=== PATIENT | female | born 1995 | race Caucasian/White ===

== ENCOUNTER → 2018-09-18 | Outpatient (CLI) | payer BC ==
[2018-09-18 15:42] LABS: FREE T4 1.28 NG/DL (0.76-1.46)
== END ==
LOC: M SMT 10:14
DX: R63.5 Abnormal weight gain (principal)
CPT/HCPCS: 84443

== ENCOUNTER → 2018-11-13 | Outpatient (REF) | payer BC ==
[~2018-11-13] MED LIST: ACET50TA PO; IBUP80TA PO
== END ==
LOC: M LAB REF 13:25
PROVIDERS: ATTEND Obstetrics & Gynecology
DX: R87.613 High grade squamous intraepithelial lesion on cytologic smear of cervix (HGSIL) (principal)

== ENCOUNTER → 2018-12-01 | Outpatient (REF) | payer BC | LOC: M LAB REF 19:48 | PROVIDERS: ATTEND Obstetrics & Gynecology | DX: D06.1 Carcinoma in situ of exocervix (principal) ==

== ENCOUNTER → 2019-03-31 | Outpatient (CLI) | payer BC ==
[~2019-03-31] MED LIST changes: -ACET50TA PO; +MAPA500T17 PO
[2019-03-31 13:20] LABS: BASO # 0.1 10^3/uL (0.0-0.2); BASO % 0.5 % (0.0-1.0); EOS % 0.3 % (0.0-3.0); HEMATOCRIT 40.7 % (36.0-47.0); HEMOGLOBIN 13.4 g/dl (12.0-15.5); LYMPH # 1.7 10^3/uL (1.5-6.5); LYMPH % 12.5 % (24.0-44.0); MEAN CORPUSCULAR HEMOGLOBIN 29.5 pg (27.0-33.0); MEAN CORPUSCULAR HGB CONC 32.9 g/dl (32.0-36.5); MEAN CORPUSCULAR VOLUME 89.6 fl (80.0-96.0); MONO # 0.6 10^3/uL (0.0-0.8); MONO % 4.4 % (0.0-5.0); NEUTROPHILS % 81.9 % (36.0-66.0); PLATELET COUNT, AUTOMATED 339 10^3/uL (150-450); RED BLOOD COUNT 4.54 10^6/uL (4.00-5.40); WHITE BLOOD COUNT 13.4 10^3/uL (4.0-10.0)
[2019-03-31 14:13] LABS: HEPATITIS C VIRUS ABY INDEX 0.1 INDEX (<0.8); HIV 1&2 SCREEN CENTAUR NEGATIVE (NEGATIVE); RUBELLA IgG QUALITATIVE IMMUNE (IMMUNE)
[2019-03-31 15:00] LABS: CHLAMYDIA DNA AMPLIFICATION NEGATIVE (NEGATIVE); GC DNA AMPLIFICATION NEGATIVE (NEGATIVE)
== END ==
LOC: M SMT 09:45
PROVIDERS: ATTEND Advanced Practice Midwife
DX: Z34.81 Encounter for supervision of other normal pregnancy, first trimester (principal); Z3A.00 Weeks of gestation of pregnancy not specified

== ENCOUNTER → 2019-05-31 | Outpatient (CLI) | payer BC ==
--- NOTE | 2019-05-31 22:37 | REP ---
Clinical: Anatomical evaluation. Comparison: None . Findings: Examination demonstrates a single live intrauterine in variable presentation. motion is identified by technologist. Placenta is noted posterior and grade zero without evidence for placenta previa or abruption. Amniotic fluid volume is normal. Cervix measures 3.7 cm in length and appears closed. No evidence for nuchal cord. Gestational age by LMP 18 weeks 3 days with LEW 10/29/2019 . Gestational age by current measurements 18 weeks 2 days with LEW 10/30/2019 . FHR equals 163 beats per minute. BPD 3.9 cm 17 weeks 6 days HC 14.97 18 weeks 0 days AC 12.1 cm 17 weeks 5 days FL 3.0 cm 19 weeks 3 days HL 2.7 cm 18 weeks 3 days HC/AC ratio 1.23 Estimated weight 240 grams ( 48th percentile). Anatomical assessment demonstrates normal structures including cranium, choroid plexus, cavum, cerebellum/posterior fossa, facial features, lungs, diaphragm, stomach, cord insertion/three-vessel cord, kidneys/bladder, and extremities. Limited evaluation of the four-chamber heart/ventricular outflow tracts and spine. Impression: Single live intrauterine in variable presentation demonstrating appropriate interval growth. Anatomical limitations as noted above may warrant reevaluation and follow-up. Electronically Signed by Bryan Martell MD 05/31/2019 10:28 P
== END ==
LOC: M RAD 09:57
PROVIDERS: ATTEND Advanced Practice Midwife
DX: Z34.82 Encounter for supervision of other normal pregnancy, second trimester (principal); Z3A.18 18 weeks gestation of pregnancy

== ENCOUNTER → 2019-05-31 | Outpatient (CLI) | payer BC | LOC: M SMT 11:41 | PROVIDERS: ATTEND Advanced Practice Midwife | DX: O28.5 Abnormal chromosomal and genetic finding on antenatal screening of mother (principal); Z3A.00 Weeks of gestation of pregnancy not specified ==

== ENCOUNTER → 2019-07-19 | Outpatient (CLI) | payer BC ==
--- NOTE | 2019-07-20 04:20 | REP ---
Clinical: Anatomical evaluation. Comparison: 05/31/2019 . Findings: Examination demonstrates a single live intrauterine in transverse (head to maternal right) presentation. motion is identified by technologist. Placenta is noted posterior and grade there are zero without evidence for placenta previa or abruption. Amniotic fluid volume is normal. Cervix measures 3.7 cm in length and appears closed. No evidence for nuchal cord. Gestational age by LMP 25 weeks 3 day with LEW 10/29/2019 . Gestational age by current measurements 25 weeks 1 day with LEW 10/31/2019 . FHR equals 157 beats per minute. Estimated weight 836 grams ( 50th percentile). Anatomical assessment demonstrates echogenic focus within the left cardiac ventricle likely prominent chordae tendineae and otherwise normal appearance of the four-chamber heart and cardiac ventricular outflow tracts. Spine is incompletely evaluated. Impression: 1. Single live intrauterine in transverse lie demonstrating appropriate interval growth. 2. Continued limited evaluation of the spine due to positioning along with suspected prominent chordae tendineae. Electronically Signed by Bryan Martell MD 07/20/2019 04:11 A
== END ==
LOC: M RAD 16:25
PROVIDERS: ATTEND Advanced Practice Midwife
DX: Z36.89 Encounter for other specified antenatal screening (principal); Z3A.25 25 weeks gestation of pregnancy

== ENCOUNTER → 2019-08-02 | Outpatient (CLI) | payer BC ==
[2019-08-02 14:06] LABS: HEMATOCRIT 38.2 % (36.0-47.0); HEMOGLOBIN 12.4 g/dl (12.0-15.5); MEAN CORPUSCULAR HEMOGLOBIN 29.3 pg (27.0-33.0); MEAN CORPUSCULAR HGB CONC 32.5 g/dl (32.0-36.5); MEAN CORPUSCULAR VOLUME 90.3 fl (80.0-96.0); PLATELET COUNT, AUTOMATED 289 10^3/uL (150-450); RED BLOOD COUNT 4.23 10^6/uL (4.00-5.40); WHITE BLOOD COUNT 12.4 10^3/uL (4.0-10.0)
== END ==
LOC: M SMT 09:01
PROVIDERS: ATTEND Advanced Practice Midwife
DX: Z34.82 Encounter for supervision of other normal pregnancy, second trimester (principal); Z3A.00 Weeks of gestation of pregnancy not specified

== ENCOUNTER → 2019-08-12 | Outpatient (CLI) | payer BC | LOC: M LAB 08:02 | PROVIDERS: ATTEND Obstetrics & Gynecology | DX: Z34.82 Encounter for supervision of other normal pregnancy, second trimester (principal); Z3A.00 Weeks of gestation of pregnancy not specified ==

== ENCOUNTER → 2019-10-04 | Outpatient (REF) | payer BC | LOC: M LAB REF 16:55 | PROVIDERS: ATTEND Obstetrics & Gynecology | DX: Z36.85 Encounter for antenatal screening for Streptococcus B (principal) ==

== ENCOUNTER 2019-10-11 05:17 | Outpatient (CLI) | payer BC ==
[~2019-10-11] VITALS: Ht 157.5 cm; Wt 84.1 kg
[2019-10-11 05:42] VITALS: BP 118/69
[2019-10-11] MEDS ORDERED: PRENTAB9 PO (05:57)
[2019-10-11 07:32] VITALS: BP 111/67
[2019-10-11 09:14] VITALS: BP 120/61
[2019-10-11 10:00] VITALS: BP 111/61
[2019-10-11 11:10] VITALS: BP 129/69
--- NOTE | 2019-10-11 13:19 | IPNPDOC ---
Text Note Date of Service The patient was seen on 10/11/19. NOTE Subjective: Patient is a 24-year-old female who is a at 37.3 weeks gestation with an LEW of 10/29/19 based off of LMP and consistent with her first trimester ultrasound. Her has been complicated by A1GDM and a history of a LEEP. She presents to L&d with complaints of contractions. She reports that after she arrived her contractions became less intense and not as close together. Reports feeling contractions when she is walking but states they go away when she is in bed. Reports active movement. Denies leaking of fluid or vaginal bleeding. Medical history: Gestational diabetes-A1GDM Surgical History: LEEP, D&C, Tonsillectomy Family history: HTN, DM, heart disease Social history: . Not a smoker. No history of alcohol or drug abuse. Denies history of abuse. Past : 1. August 2010: 12 weeks MAB with D&C 2. May 2011: 37 weeks: of living male weighting 5 lbs 14 oz 3. May 2013: 40 weeks of living male weighting 8 lbs 8 oz Objective: VS: see below. FHR 145, moderate variability, positive accelerations, no decelerations. Contractions are irregular. A+Ox3; Respiratory: regular rate and rhythm; Abdomen: gravid and non-tender to touch. SVE: 1/80/-2, ballotable, midposition. No change after 3 hours. Assessment: IUP at 37.3 weeks, not in active labor, Category I FHR tracing. Plan: Patient discharged to home. Extensive education done on labor signs. Reviewed access to care, kick count, and danger signs to report. She is to follow-up in 1 week or sooner if needed. VS,Fishbone, I+O VS, Fishbone, I+O Vital Signs Date Time Temp Pulse Resp B/P (MAP) Pulse Ox O2 Delivery O2 Flow Rate FiO2 10/11/19 11:10 97 18 129/69 (89) 10/11/19 07:32 98.2 JENNIFER JOHNSON CNM Oct 11, 2019 13:19
== END 2019-10-11 11:40 | disposition home or self-care (01) ==
LOC: M LDO 05:17 → M LDI 06:19 → UNDOADMIN 06:19 → M LDI 06:19 → M LDO 11:40
PROVIDERS: ATTEND Obstetrics & Gynecology
DX: O47.1 False labor at or after 37 completed weeks of gestation (principal); Z3A.37 37 weeks gestation of pregnancy; O24.419 Gestational diabetes mellitus in pregnancy, unspecified control
CPT/HCPCS: 59025; G0378; G0463

== ENCOUNTER 2019-10-22 19:24 | Inpatient (IN) | payer BC ==
[~2019-10-22] VITALS: Ht 180.3 cm; Wt 85.5 kg
[~2019-10-22 19:24] MED LIST changes: +PRENTAB9 PO
[2019-10-22 19:37] VITALS: BP 131/86
[2019-10-22] MEDS ORDERED: miSOPROStol 50 MCG 1/2 TAB (S0191) As Ordered ONE (20:58)
[2019-10-22 21:00] VITALS: BP 115/60
[2019-10-22] MEDS ORDERED: LACTATED RINGER'S 1000 ML IV STA (21:01)
[2019-10-22] MEDS: miSOPROStol 50 MCG 1/2 TAB (S0191) PO SCH (21:08)
--- NOTE | 2019-10-22 21:21 | HPEPDOC ---
Obstetrical History & Physical General Date of Admission Oct 22, 2019 at 19:24 History of Present Illness Chief Complaint: Induction of labor (A1GDM) Information Provided By: Patient Age: 24 : 4 Term: 2 Pre-term: 0 Abortions: 1 Livin Care Care: Good Care Dating Final EDC: Oct 29, 2019 Final EDC by: LMP EGA at Admission: 39 Antepartum Course Height (inches): 62 Pre- weight (lbs.): 175 Admission Weight (lbs.): 188 Past Medical History Past Obstetrical History #1: Past Obstetrical History: Primgravida (2010) Type of Delivery: Spontaneous Vaginal Del. Sex of Infant: Male (5#14) Complications: Yes (threatened PTL) Past Obstetrical History #2: Past Obstetrical History: Multigravida (2012) Type of Delivery: Spontaneous Vaginal Del. Sex of Infant: Male (8#8) Complications: No PE[employer]UT F[employer]ER History: Spontaneous , Abnormal Pap Past Medical History Surgical History: Dilatation and Curettage, Tonsilectomy, Other ([facility] 11/2018) Family History Significant Family History: Diabetes, Heart disease Social History Marital Status: Family situation: Spouse/partner home Psychosocial History: No pertinent psych hx * Smoker: non-smoker Alcohol: Denies Drugs: denies Imunizations Tdap status: declined Influenza Status: current Allergies Coded Allergies: No Known Drug Allergies (Verified Allergy, Unknown, 10/11/19) Medications Scheduled Acetaminophen (Tylenol) 500 Mg Tab, 1,000 MG PO Q4HP Ibuprofen (Motrin, Advil) 800 Mg Tab, 800 MG PO Q6HP No.137/Iron/Folic Acd ( Vitamin Tablet) 1 Each Tablet, 1 TAB PO DAILY Miscellaneous Medications [None] Physical Examination Physical Examination GENERAL: Alert and oriented times three. BREAST: . ABDOMEN: Gravid and non-tender to touch. FETUS: Is vertex (VTX) by sterile vaginal examination (SVE), fetus is vertex (VTX) by Ollie. HEART RATE: Regular rate and rhythm. LUNGS: Clear to auscultation (CTA). EXTREMITIES: No edema. No clonus. Deep tendon reflexes (DTRs) + 2. Vital Signs/I&O Vital Signs Date Time Temp Pulse Resp B/P (MAP) Pulse Ox O2 Delivery O2 Flow Rate FiO2 10/22/19 19:37 98.4 102 131/86 (101) Laboratory Data [facility] Laboratory Tests 2 10/22/19 19:32: Serology Scanned Report Hepatitis B Testing Pertinent Laboratoy Data Blood Type: A+ RBC Antibody Screen: Negative HIV: Negative Hepatitis B: Negative Hepatitis C: Negative Rapid Plasma Reagin: Nonreactive Rubella: Immune Chlamydia/Gonorrhea: Negative Group B Streptococcus: Negative Quad Screen Test: Positive (Trisomy 18) Glucose Tolerance Test: 170 (3 hr 89/178/188/177) Diag/Inter Therapy Panorama low risk female Anatomy Ultrasound Ultrasound Date: May 31, 2019 Placenta Location: Posterior Normal Anatomy: Yes Placenta Previa: No Estimated Weight (grams): 240 Other Ultrasounds 03/31/19 dating 9w3d 06/07/19 PNC normal anatomy, nasal bone 4.6mm 07/19/19 Posterior placenta, EFW 836, 50% Steroid Therapy Steroid Therapy: No Vaginal Examination Dilation: 2cm Effacement: 80% Station: -1 Cervical Consistency: Medium Cervical Position: Posterior Presentation: Cephalic presentation Assessment Heart Rate (FHR): 150 Variability: Moderate Accelerations: Positive Decelerations: None Tocometer Frequency: irregular Strength: palpated as mild Assessment/Plan Assessment Jia is a 24-year-old (G)4 para (P)2-0-1-0 at 39+0 weeks by 9-week ultrasound. Presents to Labor and Delivery (L&D) induction of labor due to A1GDM, well controlled. Denies regular UC, LOF, bleeding. Reports good activity. Hx significant for LEEP 11/2018. Pt reports blood sugar at home after dinner 108. Plan Admit and orient. 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 Group B Streptococcus (GBS) negative. Labs and intravenous (IV) per unit protocol. Counseled on misoprostol, Pitocin and induction of labor (IOL). Lactated Ringers (LR): Bolus 500 mL, then saline lock. Pt plans an epidural Anticipate normal spontaneous delivery () C-S as appropriate. Georgina Velazquez CNM Oct 22, 2019 21:21
[2019-10-22 21:24] LABS: HEMOGLOBIN 12.7 g/dl (12.0-15.5); MEAN CORPUSCULAR HEMOGLOBIN 28.5 pg (27.0-33.0); MEAN CORPUSCULAR HGB CONC 32.6 g/dl (32.0-36.5); MEAN CORPUSCULAR VOLUME 87.6 fl (80.0-96.0); PLATELET COUNT, AUTOMATED 314 10^3/uL (150-450); RED BLOOD COUNT 4.45 10^6/uL (4.00-5.40); WHITE BLOOD COUNT 10.5 10^3/uL (4.0-10.0)
[2019-10-22 22:10] VITALS: BP 127/78
[2019-10-22 23:52] VITALS: BP 123/72
[2019-10-23] VITALS (47 sets, daily range): BP systolic 103–178; BP diastolic 58–95
[2019-10-23] MEDS: miSOPROStol 50 MCG 1/2 TAB (S0191) PO SCH (02:10)
[2019-10-23 06:43] LABS: ALBUMIN 2.7 GM/DL (3.2-5.2); ALT/SGPT 31 U/L (12-78); BILIRUBIN,TOTAL 0.4 MG/DL (0.2-1.0); BLOOD UREA NITROGEN 14 MG/DL (7-18); CALCIUM LEVEL 8.6 MG/DL (8.5-10.1); CARBON DIOXIDE LEVEL 23 MEQ/L (21-32); CHLORIDE LEVEL 106 MEQ/L (98-107); CREATININE FOR GFR 1.18 MG/DL (0.55-1.30); GLOMERULAR FILTRATION RATE 58.9 (>60); GLUCOSE, FASTING 103 MG/DL (70-100); SODIUM LEVEL 138 MEQ/L (136-145); TOTAL PROTEIN 6.6 GM/DL (6.4-8.2)
[2019-10-23] MEDS ORDERED: LR 1,000 ML IV SCH (08:04)
[2019-10-23] MEDS ORDERED: OXYTOCIN DRIP 30 UNITS in IV 1 EA IV SCH ×2 (08:15→14:45)
[2019-10-23] MEDS ORDERED: FENTANYL 2MCG/ML ROPIVACAINE 0.2% IN 0.9% NACL 100ML IVBAG As Ordered ONE (11:21)
[2019-10-23] MEDS ORDERED: NALOXONE INJ 0.4 MG/1 ML VIAL (J2310) IV PRN (11:47)
[2019-10-23] MEDS ORDERED: EPIDURAL COMMENT XX SCH (11:47)
[2019-10-23] MEDS ORDERED: REFRIGERATOR IV KEYS XX PRN (11:47)
[2019-10-23] MEDS ORDERED: diphenhydrAMINE INJ 50MG/ML VIAL (J1200) IV PRN (11:47)
[2019-10-23] MEDS ORDERED: EPIDURAL/PCA KEYS XX PRN (11:47)
[2019-10-23] MEDS ORDERED: ONDANSETRON 4MG/2ML VIAL (J2405) IV PRN (11:47)
[2019-10-23] MEDS ORDERED: LACTATED RINGER'S 1000 ML IV PRN (11:47)
[2019-10-23] MEDS ORDERED: ePHEDrine SULFATE 25 MG/5 ML(5MG/ML) SYRINGE IV PRN (11:47)
[2019-10-23] MEDS ORDERED: FENTANYL/ROPIVACAINE/NACL BAG 100 ML EPIDURAL SCH (11:47)
[2019-10-23] MEDS ORDERED: ACETAMINOPHEN TAB 650MG DOSE (2X325MG) PO PRN (14:30)
[2019-10-23] MEDS ORDERED: ACETAMINOPHEN 500 MG TAB PO PRN (14:30)
[2019-10-23] MEDS ORDERED: RHOGAM 300 MCG (1500 IU) INJ (J2790) IM SCH (14:30)
[2019-10-23] MEDS ORDERED: IBUPROFEN 800 MG TAB PO PRN (14:30)
[2019-10-23] MEDS ORDERED: IBUPROFEN 600 MG TAB PO PRN (14:30)
[2019-10-23] MEDS ORDERED: ANUSOL HC CREAM 30GM TOP PRN (14:30)
[2019-10-23] MEDS ORDERED: DOCUSATE SODIUM 100 MG CAP PO PRN (14:30)
[2019-10-23] MEDS ORDERED: METHYLERGONOVINE MALEATE 0.2 MG TAB PO PRN (14:30)
[2019-10-23] MEDS ORDERED: DIBUCAINE 1% OINTMENT 30GM TOP PRN (14:30)
[2019-10-23] MEDS ORDERED: MOM 30ML SUSPENSION UDC PO PRN (14:30)
[2019-10-23] MEDS ORDERED: MEASLES,MUMPS,RUBELLA VACCINE INJ (MMR-II) (90707) SC SCH (14:30)
--- NOTE | 2019-10-23 14:39 | DN ---
DATE OF DELIVERY: 10/23/2019 TIME OF : 1353 GENDER: Female SCORES: 9 and 10. WEIGHT: 6 pounds 7 ounces, 2920 grams. LACERATIONS: None. ESTIMATED BLOOD LOSS: 300 mL COUNTS: Five laparotomy sponges accounted for prior to and after delivery. DELIVERY NOTE: On the September at 1353 Mrs. Moffett a 24-year-old 4, para 3 has a spontaneous vaginal delivery of a live born female infant, scores of 9 and 10, weight was 2920 grams or 6 pounds 7 ounces. Head was delivered occipitoanterior (OA) over intact perineum. There was nuchal cord which was manually reduced followed by right anterior shoulder, left posterior shoulder and corpus. was handed to mom with a good cry. Cord was clamped times two and was cut by the father of baby under my direction. Placenta was then drained and delivered grossly intact. A premixed bag of 500 mL of normal saline with 30 units of Pitocin was then bolused along with uterine massage. The uterus was firm. On inspection cervix, vagina, and perineum was grossly intact and hemostatic. Mom and baby recovered in stable condition. Couple decided to name their daughter, Mary.
[2019-10-23] MEDS ORDERED: METHYLERGONOVINE MALEATE 0.2 MG/ML VIAL (J2210) As Ordered ONE (16:59)
[2019-10-23] MEDS ORDERED: METHYLERGONOVINE MALEATE 0.2 MG/ML VIAL (J2210) IM STA (17:04)
[2019-10-23] MEDS ORDERED: METHYLERGONOVINE MALEATE 0.2 MG TAB PO SCH (23:00)
[2019-10-24] MEDS ORDERED: PRENATAL VITAMINS CHEWABLE TABLET PO SCH (09:00)
== END 2019-10-23 23:30 | disposition home or self-care (01) | DRG 560 ==
LOC: M LDI 19:24 → M OBS 10-23 19:34
PROVIDERS: ADMIT Advanced Practice Midwife; ATTEND Obstetrics & Gynecology
PROC: 3E0P7GC Introduction of Other Therapeutic Substance into Female Reproductive, Via Natural or Artificial Opening (ICD-10-PCS; 2019-10-22)
PROC: 10E0XZZ Delivery of Products of Conception, External Approach (ICD-10-PCS; principal; 2019-10-23)
DX: O24.420 Gestational diabetes mellitus in childbirth, diet controlled (principal); Z3A.39 39 weeks gestation of pregnancy; Z37.0 Single live birth; O69.81X0 Labor and delivery complicated by cord around neck, without compression, not applicable or unspecified

== ENCOUNTER → 2019-12-30 | Outpatient (REF) | payer BC | LOC: M SFHCWAGY 16:51 | PROVIDERS: ATTEND Obstetrics & Gynecology | DX: Z12.4 Encounter for screening for malignant neoplasm of cervix (principal) ==

== ENCOUNTER → 2020-04-11 | Outpatient (CLI) | payer BC | LOC: M LABSMTC 12:46 | PROVIDERS: ATTEND Family Medicine | DX: Z03.818 Encounter for observation for suspected exposure to other biological agents ruled out (principal); Z11.59 Encounter for screening for other viral diseases ==

== ENCOUNTER → 2021-02-23 | Outpatient (CLI) | payer OTHER ==
[2021-02-23 19:46] LABS: BASO # 0.1 10^3/uL (0.0-0.2); BASO % 0.7 % (0.0-1.0); EOS # 0.1 10^3/uL (0.0-0.5); EOS % 0.9 % (0.0-3.0); HEMATOCRIT 43.5 % (36.0-47.0); HEMOGLOBIN 14.1 g/dl (12.0-15.5); LYMPH # 2.7 10^3/uL (1.5-5.0); LYMPH % 26.2 % (24.0-44.0); MEAN CORPUSCULAR HEMOGLOBIN 28.8 pg (27.0-33.0); MEAN CORPUSCULAR HGB CONC 32.4 g/dl (32.0-36.5); MEAN CORPUSCULAR VOLUME 88.8 fl (80.0-96.0); MONO # 0.6 10^3/uL (0.0-0.8); MONO % 5.5 % (2.0-8.0); NEUTROPHILS # 6.8 10^3/uL (1.5-8.5); NEUTROPHILS % 66.2 % (36.0-66.0); PLATELET COUNT, AUTOMATED 392 10^3/uL (150-450); WHITE BLOOD COUNT 10.3 10^3/uL (4.0-10.0)
[2021-02-23 20:17] LABS: ALBUMIN 4.7 GM/DL (3.2-5.2); ALT/SGPT 24 U/L (12-78); BILIRUBIN,TOTAL 0.4 MG/DL (0.2-1.0); BLOOD UREA NITROGEN 15 MG/DL (7-18); CALCIUM LEVEL 9.6 MG/DL (8.5-10.1); CARBON DIOXIDE LEVEL 27 MEQ/L (21-32); CHLORIDE LEVEL 105 MEQ/L (98-107); CK-MB VALUE MASS < 1.0 NG/ML (<3.6); CPK CREATINE PHOSPHOKINASE 108 U/L (26-192); CREATININE FOR GFR 0.71 MG/DL (0.55-1.30); FREE T4 1.37 NG/DL (0.76-1.46); GLOMERULAR FILTRATION RATE > 60.0 (>60); GLUCOSE, FASTING 82 MG/DL (70-100); IRON (FE) 74 UG/DL (50-170); MB/CK RELATIVE INDEX 0.93 (< OR =4); PERCENT SATURATION 22.1 % (13.2-45.0); POTASSIUM SERUM 3.8 MEQ/L (3.5-5.1); SODIUM LEVEL 140 MEQ/L (136-145); THYROID STIMULATING HORMONE 0.903 uIU/ML (0.358-3.740); TOTAL IRON BINDING CAPACITY 335 UG/DL (250-450); TOTAL PROTEIN 8.2 GM/DL (6.4-8.2); TROPONIN I < 0.02 NG/ML (< 0.10)
== END ==
LOC: M WUC 15:57
PROVIDERS: ATTEND Physician Assistant
DX: R07.1 Chest pain on breathing (principal)

== ENCOUNTER → 2022-04-03 | Outpatient (CLI) | payer OTHER ==
[2022-04-03 15:23] LABS: BASO # 0.1 10^3/uL (0.0-0.2); BASO % 0.6 % (0.0-1.0); EOS # 0.1 10^3/uL (0.0-0.5); EOS % 0.7 % (0.0-3.0); HEMATOCRIT 39.5 % (36.0-47.0); HEMOGLOBIN 13.3 g/dl (12.0-15.5); LYMPH # 2.5 10^3/uL (1.5-5.0); LYMPH % 23.4 % (24.0-44.0); MEAN CORPUSCULAR HEMOGLOBIN 29.9 pg (27.0-33.0); MEAN CORPUSCULAR HGB CONC 33.7 g/dl (32.0-36.5); MEAN CORPUSCULAR VOLUME 88.8 fl (80.0-96.0); MONO # 0.5 10^3/uL (0.0-0.8); MONO % 4.8 % (2.0-8.0); NEUTROPHILS # 7.5 10^3/uL (1.5-8.5); PLATELET COUNT, AUTOMATED 304 10^3/uL (150-450); RED BLOOD COUNT 4.45 10^6/uL (4.00-5.40); WHITE BLOOD COUNT 10.7 10^3/uL (4.0-10.0)
[2022-04-03 16:39] LABS: HEPATITIS C VIRUS ABY INDEX 0.1 INDEX (<0.8); HIV 1&2 SCREEN CENTAUR NEGATIVE (NEGATIVE)
[2022-04-03 16:55] LABS: GC DNA AMPLIFICATION NEGATIVE (NEGATIVE)
== END ==
LOC: M PLALAB 10:50
PROVIDERS: ATTEND Obstetrics & Gynecology
DX: Z34.81 Encounter for supervision of other normal pregnancy, first trimester (principal); Z3A.00 Weeks of gestation of pregnancy not specified

== ENCOUNTER → 2022-05-08 | Outpatient (CLI) | payer OTHER | LOC: M LAB 16:00 | PROVIDERS: ATTEND Obstetrics & Gynecology | DX: Z36.9 Encounter for antenatal screening, unspecified (principal) ==

== ENCOUNTER → 2022-05-21 | Outpatient (CLI) | payer OTHER | LOC: M WHC 14:06 | PROVIDERS: ATTEND Obstetrics & Gynecology | DX: O09.292 Supervision of pregnancy with other poor reproductive or obstetric history, second trimester (principal); Z3A.18 18 weeks gestation of pregnancy ==

== ENCOUNTER → 2022-06-18 | Outpatient (CLI) | payer OTHER | LOC: M WHC 14:07 | PROVIDERS: ATTEND Obstetrics & Gynecology | DX: O09.292 Supervision of pregnancy with other poor reproductive or obstetric history, second trimester (principal); Z3A.23 23 weeks gestation of pregnancy ==

== ENCOUNTER → 2022-07-11 | Outpatient (CLI) | payer OTHER | LOC: M WHC 15:02 | PROVIDERS: ATTEND Obstetrics & Gynecology | DX: Z36.89 Encounter for other specified antenatal screening (principal); O36.5920 Maternal care for other known or suspected poor fetal growth, second trimester, not applicable or unspecified; Z3A.25 25 weeks gestation of pregnancy ==

== ENCOUNTER → 2022-07-23 | Outpatient (CLI) | payer OTHER ==
[2022-07-23 15:00] LABS: HEMATOCRIT 36.8 % (36.0-47.0); HEMOGLOBIN 12.3 g/dl (12.0-15.5); MEAN CORPUSCULAR HEMOGLOBIN 30.1 pg (27.0-33.0); MEAN CORPUSCULAR HGB CONC 33.4 g/dl (32.0-36.5); PLATELET COUNT, AUTOMATED 271 10^3/uL (150-450); RED BLOOD COUNT 4.09 10^6/uL (4.00-5.40); WHITE BLOOD COUNT 12.3 10^3/uL (4.0-10.0)
== END ==
LOC: M LAB 12:53
PROVIDERS: ATTEND Obstetrics & Gynecology
DX: O09.292 Supervision of pregnancy with other poor reproductive or obstetric history, second trimester (principal)

== ENCOUNTER → 2022-08-01 | Outpatient (CLI) | payer OTHER | LOC: M LAB 08:29 | PROVIDERS: ATTEND Advanced Practice Midwife | DX: O99.810 Abnormal glucose complicating pregnancy (principal); Z3A.00 Weeks of gestation of pregnancy not specified ==

== ENCOUNTER → 2022-08-01 | Outpatient (CLI) | payer OTHER | LOC: M WHC 14:06 | PROVIDERS: ATTEND Advanced Practice Midwife | DX: O36.5930 Maternal care for other known or suspected poor fetal growth, third trimester, not applicable or unspecified (principal); Z3A.28 28 weeks gestation of pregnancy ==

== ENCOUNTER → 2022-08-08 | Outpatient (CLI) | payer OTHER | LOC: M WHC 13:20 | PROVIDERS: ATTEND Advanced Practice Midwife | DX: O36.5930 Maternal care for other known or suspected poor fetal growth, third trimester, not applicable or unspecified (principal); Z3A.00 Weeks of gestation of pregnancy not specified ==

== ENCOUNTER → 2022-08-13 | Outpatient (CLI) | payer OTHER | LOC: M WHC 11:08 | PROVIDERS: ATTEND Advanced Practice Midwife | DX: O36.5930 Maternal care for other known or suspected poor fetal growth, third trimester, not applicable or unspecified (principal); Z3A.31 31 weeks gestation of pregnancy ==

== ENCOUNTER → 2022-08-20 | Outpatient (CLI) | payer OTHER | LOC: M WHC 12:29 | PROVIDERS: ATTEND Advanced Practice Midwife | DX: O36.5930 Maternal care for other known or suspected poor fetal growth, third trimester, not applicable or unspecified (principal); Z3A.32 32 weeks gestation of pregnancy ==

== ENCOUNTER → 2022-09-03 | Outpatient (CLI) | payer OTHER | LOC: M WHC 12:14 | PROVIDERS: ATTEND Advanced Practice Midwife | DX: O36.5930 Maternal care for other known or suspected poor fetal growth, third trimester, not applicable or unspecified (principal); Z3A.32 32 weeks gestation of pregnancy ==

== ENCOUNTER → 2022-09-10 | Outpatient (CLI) | payer OTHER | LOC: M WHC 13:09 | PROVIDERS: ATTEND Advanced Practice Midwife | DX: O36.5930 Maternal care for other known or suspected poor fetal growth, third trimester, not applicable or unspecified (principal) ==

== ENCOUNTER → 2022-09-17 | Outpatient (CLI) | payer OTHER | LOC: M WHC 11:53 | PROVIDERS: ATTEND Advanced Practice Midwife | DX: O36.5930 Maternal care for other known or suspected poor fetal growth, third trimester, not applicable or unspecified (principal); Z3A.35 35 weeks gestation of pregnancy ==

== ENCOUNTER → 2022-09-20 | Outpatient (REF) | payer OTHER | LOC: M SFHCWAGY 16:51 | PROVIDERS: ATTEND Obstetrics & Gynecology | DX: O09.293 Supervision of pregnancy with other poor reproductive or obstetric history, third trimester (principal) ==

== ENCOUNTER 2022-09-27 14:05 | Inpatient (IN) | payer OTHER ==
[~2022-09-27] VITALS: Ht 154.9 cm; Wt 87.3 kg
[~2022-09-27 14:05] MED LIST changes: -ACET-683 PO; -COLA100C5 PO; -IBUP-1022 PO; -OMEP40CA4 PO
[2022-09-27] MEDS ORDERED: OMEP40CA4 PO (14:29)
[2022-09-27 14:30] VITALS: BP 117/79
[2022-09-27] MEDS ORDERED: LACTATED RINGER'S 1000 ML IV ONE (16:10)
[2022-09-27 17:24] LABS: BASO # 0.1 10^3/uL (0.0-0.2); BASO % 0.4 % (0.0-1.0); EOS % 0.3 % (0.0-3.0); HEMATOCRIT 32.5 % (36.0-47.0); HEMOGLOBIN 10.9 g/dl (12.0-15.5); LYMPH % 13.7 % (24.0-44.0); MEAN CORPUSCULAR HEMOGLOBIN 28.9 pg (27.0-33.0); MEAN CORPUSCULAR HGB CONC 33.5 g/dl (32.0-36.5); MEAN CORPUSCULAR VOLUME 86.2 fl (80.0-96.0); MONO # 0.9 10^3/uL (0.0-0.8); MONO % 5.9 % (2.0-8.0); NEUTROPHILS # 11.3 10^3/uL (1.5-8.5); NEUTROPHILS % 76.7 % (36.0-66.0); PLATELET COUNT, AUTOMATED 242 10^3/uL (150-450); RED BLOOD COUNT 3.77 10^6/uL (4.00-5.40); WHITE BLOOD COUNT 14.7 10^3/uL (4.0-10.0)
[2022-09-27 17:34] VITALS: BP 109/59
[2022-09-27 17:45] LABS: APPEARANCE, URINE MANUAL CLEAR (CLEAR); BILIRUBIN, URINE MANUAL NEGATIVE (NEGATIVE); BLOOD URINE MANUAL NEGATIVE (NEGATIVE); COLOR, URINE MANUAL YELLOW (YELLOW); GLUCOSE, URINE (UA) MANUAL NEGATIVE (NEGATIVE); KETONE, URINE MANUAL NEGATIVE (NEGATIVE); LEUKOCYTE ESTERASE, URINE MAN TRACE (NEGATIVE); NITRITE, URINE MANUAL NEGATIVE (NEGATIVE); PH,URINE MAN 5.5 UNITS (5.0 - 7.0); PROTEIN, URINE MANUAL NEGATIVE (NEGATIVE); UROBILINOGEN, URINE MANUAL NORMAL (NORMAL)
[2022-09-27 17:54] LABS: BACTERIA, URINE MOD AMOUNT; HYALINE CAST, URINE NONE SEEN /lpf (0-1); RBC, URINE 0-1 /hpf (0-3); SQUAMOUS EPITHELIAL CELL URINE MOD AMOUNT /hpf (SMALL AMT)
[2022-09-27] MEDS: miSOPROStol 50MCG 1/2 TABLET PO PRN ×2 (19:13→23:13)
[2022-09-27 19:35] VITALS: BP 116/69
[2022-09-27 21:30] VITALS: BP 105/63
[2022-09-27 23:17] VITALS: BP 94/52
[2022-09-28] VITALS (34 sets, daily range): BP systolic 81–139; BP diastolic 44–81
[2022-09-28] MEDS: miSOPROStol 50MCG 1/2 TABLET PO PRN (03:18)
[2022-09-28] MEDS ORDERED: OXYTOCIN DRIP 30 UNITS in IV 1 EA IV SCH (08:50)
[2022-09-28] MEDS ORDERED: FENTANYL 2MCG/ML ROPIVACAINE 0.2% IN 0.9% NACL 100ML IVBAG As Ordered ONE (11:53)
[2022-09-28] MEDS ORDERED: REFRIGERATOR IV KEYS XX PRN (12:00)
[2022-09-28] MEDS ORDERED: FENTANYL/ROPIVACAINE/NACL BAG 100 ML EPIDURAL SCH (12:00)
[2022-09-28] MEDS ORDERED: ePHEDrine SULFATE 25 MG/5 ML(5MG/ML) SYRINGE IV PRN (12:00)
[2022-09-28] MEDS ORDERED: diphenhydrAMINE 50MG/ML VIAL IV PRN (12:00)
[2022-09-28] MEDS ORDERED: EPIDURAL COMMENT XX SCH (12:00)
[2022-09-28] MEDS ORDERED: ONDANSETRON 4MG 2ML VIAL IV PRN (12:00)
[2022-09-28] MEDS ORDERED: EPIDURAL/PCA KEYS XX PRN (12:00)
[2022-09-28] MEDS ORDERED: NALOXONE INJ 0.4MG/1ML VIAL (J2310 PER 1MG) IV PRN (12:00)
[2022-09-28] MEDS ORDERED: LACTATED RINGER'S 1000 ML IV PRN (12:00)
[2022-09-28] MEDS ORDERED: METHYLERGONOVINE MALEATE 0.2 MG TAB PO PRN (15:15)
[2022-09-28] MEDS ORDERED: DOCUSATE SODIUM 100MG CAPSULE PO PRN (15:15)
[2022-09-28] MEDS ORDERED: RHOGAM 300 MCG (1500 IU) INJ (J2790) IM SCH (15:15)
[2022-09-28] MEDS ORDERED: ACETAMINOPHEN TAB 650MG DOSE (2X325MG) PO PRN (15:15)
[2022-09-28] MEDS ORDERED: IBUPROFEN 600MG TAB PO PRN (15:15)
[2022-09-28] MEDS ORDERED: DIBUCAINE 1% OINTMENT 30GM TOP PRN (15:15)
[2022-09-28] MEDS ORDERED: ACETAMINOPHEN 500 MG TAB PO PRN (15:15)
[2022-09-28 15:19] LABS: CORD GAS ABE A -4.3; CORD GAS HCO3 A 23.7 MEQ/L; CORD GAS O2 SAT A 44.1 %; CORD GAS PCO2 A 53.7 mmHg; CORD GAS PH A 7.262 UNITS; CORD GAS PO2 A 20.5 mmHg; CORD GAS SBC A 19.5 MEQ/L; CORD GAS TCO2 A 25.3 MEQ/L
[2022-09-28 15:20] LABS: CORD GAS ABE V -1.9; CORD GAS HCO3 V 22.4 MEQ/L; CORD GAS PCO2 V 37.3 mmHg; CORD GAS PH V 7.396 UNITS; CORD GAS PO2 V 32.1 mmHg; CORD GAS SBC V 22.4 MEQ/L; CORD GAS TCO2 V 23.5 MEQ/L
[2022-09-28] MEDS: IBUPROFEN 800 MG TAB PO PRN (23:59)
[2022-09-29 06:00] VITALS: BP 133/76
[2022-09-29] MEDS ORDERED: PRENATAL VITAMINS CHEWABLE TABLET PO SCH (09:00)
[2022-09-29] MEDS ORDERED: ACET-683 PO (10:19)
[2022-09-29] MEDS ORDERED: COLA100C5 PO (10:19)
[2022-09-29] MEDS ORDERED: IBUP-1022 PO (10:19)
[2022-09-29] MEDS: IBUPROFEN 800 MG TAB PO PRN (10:48)
[2022-09-29] MEDS ORDERED: INFLUENZA QUADRIVALENT PF VACCINE 0.5ML SYRINGE IM.IMMUN ONE (13:00)
[2022-09-30] MEDS ORDERED: MEASLES,MUMPS,RUBELLA VACCINE INJ (MMR-II) (90707) SC.IMMUN ONE (09:00)
== END 2022-09-29 17:25 | disposition home or self-care (01) | DRG 807 ==
LOC: M LDO 14:05 → M LDI 18:18 → M OBS 09-28 17:33
PROVIDERS: ADMIT Obstetrics & Gynecology; ATTEND Obstetrics & Gynecology
PROC: 3E0P7GC Introduction of Other Therapeutic Substance into Female Reproductive, Via Natural or Artificial Opening (ICD-10-PCS; 2022-09-27)
PROC: 10E0XZZ Delivery of Products of Conception, External Approach (ICD-10-PCS; principal; 2022-09-28)
DX: O36.5930 Maternal care for other known or suspected poor fetal growth, third trimester, not applicable or unspecified (principal); Z37.0 Single live birth; Z3A.37 37 weeks gestation of pregnancy; O36.8130 Decreased fetal movements, third trimester, not applicable or unspecified; O69.81X0 Labor and delivery complicated by cord around neck, without compression, not applicable or unspecified; Z79.899 Other long term (current) drug therapy

== ENCOUNTER → 2022-09-27 | Outpatient (CLI) | payer OTHER ==
[~2022-09-27] MED LIST changes: +ACET-683 PO; +COLA100C5 PO; +IBUP-1022 PO; +OMEP40CA4 PO
== END ==
LOC: M RAD 12:29
PROVIDERS: ATTEND Advanced Practice Midwife
DX: O36.5930 Maternal care for other known or suspected poor fetal growth, third trimester, not applicable or unspecified (principal)